=== PATIENT | male | born 1985 | race Two or more races ===

== ENCOUNTER 2024-03-06 04:38 | Emergency (ER) | payer MEDICAID, OTHER ==
[~2024-03-06] VITALS: Ht 167.6 cm; Wt 93.7 kg
[2024-03-06 05:15] VITALS: PULSE 89; RESP 20; O2SAT 95
[2024-03-06 05:36] LABS: Basophils # (auto) 0.1 10 ^3/uL (0-0.2); Basophils % (auto) 0.9 % (0.0-2.0); Eosinophils # (auto) 0 10 ^3/uL (0-0.8); Eosinophils % (auto) 0.2 % (0.0-7.0); Hematocrit 41.6 % (41.0-53.0); Hemoglobin 13.8 g/dL (13.5-17.5); Lymphocytes # (auto) 1.8 10 ^3/uL (0.4-5.4); Lymphocytes % (auto) 21.3 % (10.0-50.0); Mean Corpuscular Hemoglobin 29.8 pg (28.0-32.0); Mean Corpuscular Hgb Conc. 33.2 g/dL (32.0-36.0); Mean Corpuscular Volume 89.7 fL (80.0-100.0); Monocytes # (auto) 0.7 10 ^3/uL (0-1.3); Monocytes % (auto) 8.5 % (0.0-12.0); Neutrophils # (auto) 5.8 10 ^3/uL (1.6-8.6); Neutrophils % (auto) 69.1 % (37.0-80.0); Nucleated Red Blood Cells % 0.1 %; Red Blood Cells 4.63 10^6/uL (4.5-5.90); Red Cell Distribution Width 14.3 % (11.8-14.3); White Blood Cell 8.4 10^3/uL (4.4-10.8)
[2024-03-06 05:36] LABS: Amphetamine Screen, Urine Neg (NEGATIVE); Barbiturate Scree,Urine Neg (NEGATIVE); Benzodiazephine Screen, Urine Neg (NEGATIVE); Cocaine Screen, Urine Neg (NEGATIVE); Opiate Scree,Urine Neg (NEGATIVE)
[2024-03-06 05:37] LABS: Cannabinoid Screen, Urine Pos (NEGATIVE); Phencyclidine Screen, Urine Neg (NEGATIVE)
[2024-03-06 05:40] LABS: Chloride 108 mmol/L (98-107); Potassium 4.1 mmol/L (3.5-5.1); Sodium 140 mmol/L (136-145)
[2024-03-06 05:41] LABS: Anion Gap 7 (5-15); Calcium 9.4 mg/dL (8.7-10.4); Carbon Dioxide 25 mmol/L (20-30)
[2024-03-06 05:46] LABS: Blood Urea Nitrogen 12 mg/dL (9-23); Glucose 105 mg/dL (74-106)
[2024-03-06 05:48] LABS: Acetaminophen < 2.0 UG/ML (10.0-20.0)
[2024-03-06 05:49] LABS: Salicylate < 3.0 mg/dL (2.8-20.0)
[2024-03-06 05:52] LABS: Blood Alcohol < 3.0 mg/dL (<10)
[2024-03-06] MEDS: OLANZapine 5 MG TAB PO ONE (07:42)
[2024-03-06 08:00] VITALS: BP 108/70; PULSE 86; RESP 16; TEMP 97.8; O2SAT 95
== END 2024-03-06 09:44 | disposition left against medical advice (07) ==
LOC: ER 04:38
DX: F19.951 Other psychoactive substance use, unspecified with psychoactive substance-induced psychotic disorder with hallucinations (principal); F25.9 Schizoaffective disorder, unspecified; F15.90 Other stimulant use, unspecified, uncomplicated; Z87.891 Personal history of nicotine dependence
CPT/HCPCS: 36415; 71046; 80048; 80307; 80320; 80329; 85025